=== PATIENT | male | born 1975 | race Two or more races ===

== ENCOUNTER 2020-02-09 14:30 | Emergency (ER) | payer SELFPAY ==
[~2020-02-09] VITALS: Ht 177.8 cm; Wt 77.1 kg
[2020-02-09 14:47] VITALS: BP 142/96
[2020-02-09] MEDS ORDERED: LIDOCAINE 1% HCL (LOCAL ANESTH.) INJ 20ML MDV ID ONE (15:00)
[2020-02-09] MEDS ORDERED: cefTRIAXone W LIDOCAINE 1 GM IM IM ONE (15:45)
[2020-02-09] MEDS ORDERED: cefTRIAXone SOD 1,000 MG VL ONE (15:55)
== END 2020-02-09 16:02 | disposition home or self-care (01) ==
LOC: ER 14:30 → EDBD 14:30 → ER 16:02
DX: S01.112A Laceration without foreign body of left eyelid and periocular area, initial encounter (principal); S09.90XA Unspecified injury of head, initial encounter; Y08.89XA Assault by other specified means, initial encounter; Y93.89 Activity, other specified; Y92.89 Other specified places as the place of occurrence of the external cause; Y99.8 Other external cause status
CPT/HCPCS: 12013; 70450; 96372; 99284; J0696

== ENCOUNTER 2020-02-17 11:55 | Emergency (ER) | payer SELFPAY ==
[~2020-02-17] VITALS: Ht 175.3 cm; Wt 93.0 kg
[2020-02-17 14:57] VITALS: BP 148/90
== END 2020-02-17 15:02 | disposition home or self-care (01) ==
LOC: ER 11:55
DX: S01.312D Laceration without foreign body of left ear, subsequent encounter (principal); X58.XXXD Exposure to other specified factors, subsequent encounter